=== PATIENT | female | born 1995 | race Caucasian/White ===

== ENCOUNTER 2017-02-25 20:50 | Outpatient (CLI) | payer OTHER ==
[~2017-02-25] VITALS: Ht 160 cm; Wt 107.7 kg
[2017-02-25] MEDS ORDERED: PRENTAB26 PO (22:43)
[2017-02-25] MEDS ORDERED: RANI150T3 PO (22:43)
[2017-02-25 22:44] VITALS: Ht 160 cm; Wt 107.7 kg
--- NOTE | 2017-02-26 00:24 | Progress Note ---
Progress Note Date of Service Feb 26, 2017. Progress Note Pt seen and evaluated for labor check st 38 + weeks monitored for 3 hrs Cervical exam unchanged . ft/50/post FHR CAT 1 Ctx 2-4mins D/c home with instructions
--- NOTE | 2017-02-26 00:26 | Discharge Instructions ---
Discharge Instructions Date of Service Feb 26, 2017. Admission Reason for Admission: Check Labor Discharge Discharge Diagnosis / Problem: LABOR CHECK Discharge Goals Goal(s): Continuing OB care Activity Recommendations Activity Limitations: as noted below SPECIAL CARE INSTRUCTIONS: Call Doctor if: * Regular contractions every 5 minutes or greater than contractions in one hour. * Bleeding * Water breaks or is leaking * Decreased movement * Fever >100.4 degrees F * Pain not relieved by routine measures or pain medication ordered. FOLLOW UP VISIT: Return to Labor and Delivery on for /call for appointment time . Follow-up Visit with: When: . Current Hospital Diet Patient's current hospital diet: Discharge Diet Recommended Diet: Regular Diet Pending Studies Studies pending at discharge: no Medical Emergencies . Who to Call and When: Medical Emergencies: If at any time you feel your situation is an emergency, please call 911 immediately. . Non-Emergent Contact Non-Emergency issues call your: Specialist . . "Provider Documentation" section prepared by Onur Martins. . VTE Core Measure Inpt VTE Proph given/why not?: Treatment not indicated
== END 2017-02-26 00:45 | disposition home or self-care (01) ==
LOC: C.LD 20:50 → C.OPB 20:50
PROVIDERS: ATTEND Obstetrics & Gynecology
DX: Z34.83 Encounter for supervision of other normal pregnancy, third trimester (principal); Z3A.38 38 weeks gestation of pregnancy

== ENCOUNTER 2017-03-11 07:41 | Inpatient (IN) | payer OTHER ==
[~2017-03-11] VITALS: Ht 160 cm; Wt 108.9 kg
[~2017-03-11 07:41] MED LIST: PRENTAB26 PO; RANI150T3 PO
[2017-03-11 08:24] VITALS: Ht 160 cm; Wt 108.9 kg
[2017-03-11] MEDS ORDERED: LACTATED RINGER'S 1000ML 1,000 ML IV PRN (08:55)
[2017-03-11] MEDS ORDERED: MISOPROSTOLTAB 50 MCG TAB PO ONE ×2 (09:15→12:00)
[2017-03-11] MEDS ORDERED: PENICILLIN G POTASSIUM IV 6 MU in DEXTROSE 5% 250ML 250 ML IV ONE (09:30)
[2017-03-11] MEDS ORDERED: LACTATED RINGER'S 1000ML 500 ML IV PRN ×2 (09:32→19:28)
[2017-03-11 09:43] LABS: HEMATOCRIT 34.4 % (37-47); MEAN CELL VOLUME 83.3 fL (80-100); MEAN CORPUSCULAR HEMOGLOBIN 26.2 pg (25-34); MEAN CORPUSCULAR HGB CONC 31.4 g/dl (32-36); MEAN PLATELET VOLUME 8.7 fL (7.4-10.4); PLATELET COUNT 169 K/uL (130-400); RED BLOOD COUNT 4.13 M/uL (4.2-5.4); WHITE BLOOD COUNT 10.11 K/uL (4.8-10.8)
[2017-03-11] MEDS ORDERED: OXYTOCIN 30 UNITS/500ML NSS IV PRN (09:45)
[2017-03-11] MEDS: LACTATED RINGER'S 1000ML 1,000 ML IV SCH ×3 (09:51→21:14)
[2017-03-11 10:03] LABS: BUN/CREATININE RATIO 10.5 (10-20); CALCIUM 8.6 mg/dl (8.5-10.1); CREATININE 0.64 mg/dl (0.60-1.20); POTASSIUM 3.5 mmol/L (3.5-5.1)
[2017-03-11 10:06] LABS: ALB/GLOB RATIO 0.6 (0.9-2)
--- NOTE | 2017-03-11 11:19 | HISTORY & PHYSICAL EXAMINATION ---
DATE OF ADMISSION: 03/11/2017 HISTORY OF PRESENT ILLNESS: The patient is a 21-year-old G3, P1, due date 03/11/2017 making her 40 weeks today, presented to labor and delivery for induction of labor. The patient is being induced because of elevated BMI. On arrival at labor and delivery, she has no shortness of breath, no chills, no fever. heart rate is documented. Pelvic exam shows she is fingertip 50% and minus 4 station. The patient is carlos every 2-4 minutes. Bedside ultrasound shows cephalic presentation. course is unremarkable except for history of elevated BMI. Based on patient's history, the recommendation is made for her to be induced by EDC. LABS: Blood type A negative, antibody negative, rubella immune, GBS positive. PAST MEDICAL HISTORY: 1. History of gastroesophageal reflux disease. 2. 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 3. History of migraines. 4. History of irritable bowel syndrome. 5. Obesity class 3. PAST SURGICAL HISTORY: 1. History of tonsillectomy. 2. History of colonoscopy. 3. History of laparoscopy. 4. History of cholecystectomy. SOCIAL HISTORY: The patient is . Denies drug, tobacco or alcohol use. HUMAN RESOURCES TALENT MANAGER HISTORY: The patient delivered an at 23 weeks that did not survive. She had since had one live in 2014. PHYSICAL EXAMINATION: GENERAL: Well-developed, well-nourished white female in no acute distress. HEART: S1, S2, regular rhythm and rate. LUNGS: Clear to auscultation bilaterally. ABDOMEN: Gravid. Bedside ultrasound cephalic presentation. EXTREMITIES: No cyanosis, clubbing or edema. PELVIC: 1cm/50% effaced, and minus 4 station. ASSESSMENT AND PLAN: A 21-year-old G3, P1 at 40 weeks, here for induction because of class 3 obesity. The patient is admitted, will be started. We anticipate vaginal delivery. [facility]
[2017-03-11] MEDS: PENICILLIN G POTASSIUM IV 3 MU in DEXTROSE 5% 100ML 100 ML IV PRN ×3 (13:42→21:32)
[2017-03-11] MEDS ORDERED: ACETAMINOPHEN 500 MG TAB PO STA (17:35)
[2017-03-11] MEDS ORDERED: FENTANYL 2MCG/ML ROPIV 1.25MG/ML 100ML BAG EPI ONE (18:26)
[2017-03-11] MEDS ORDERED: EpHEDrine SULFATE INJ 50 MG/ML AMP ONE (18:26)
[2017-03-11] MEDS ORDERED: BUPIVACAINE 0.25% 30 ML VIAL ONE (18:26)
[2017-03-11] MEDS ORDERED: FENTANYL CITRATE INJ 50 MCG/1 ML 2 ML VIAL ONE (18:27)
[2017-03-11] MEDS ORDERED: NALOXONE HCL INJ 1 MG in SODIUM CHLORIDE 0.9% 1000ML 1,000 ML IV PRN ×4 (19:28)
[2017-03-11] MEDS ORDERED: ONDANSETRON INJ 2 MG/ML 2 ML VIAL IV PRN (19:30)
[2017-03-11] MEDS ORDERED: NALOXONE HCL INJ 0.4 MG/1 ML VIAL/CARP IV PRN (19:30)
[2017-03-11] MEDS ORDERED: DiphenhydrAMINE HCL 50 MG/ML VIAL IV PRN (19:30)
[2017-03-11] MEDS ORDERED: EpHEDrine SULFATE INJ 50 MG/ML AMP IV PRN (19:30)
[2017-03-11] MEDS ORDERED: PROMETHAZINE HCL INJ 25 MG in SODIUM CHLORIDE 0.9% 50ML 50 ML IV PRN (19:30)
[2017-03-11] MEDS ORDERED: NALBUPHINE HCL INJ 10 MG/ML AMP IV PRN (19:30)
[2017-03-12] MEDS: FENTANYL 2MCG/ML ROPIV 1.25MG/ML 100ML BAG EPI PRN ×2 (01:02→01:50)
[2017-03-12] MEDS: PENICILLIN G POTASSIUM IV 3 MU in DEXTROSE 5% 100ML 100 ML IV PRN (01:33)
[2017-03-12] MEDS ORDERED: FENTANYL CITRATE INJ 50 MCG/1 ML 2 ML VIAL ONE (02:01)
[2017-03-12] MEDS ORDERED: BUPIVACAINE 0.25% 30 ML VIAL ONE (02:01)
[2017-03-12] MEDS ORDERED: MISOPROSTOL 200 MCG TAB ONE (02:30)
[2017-03-12] MEDS ORDERED: OXYCODONE/ACETAMINOPHEN 5-325 TAB PO PRN (03:00)
[2017-03-12] MEDS ORDERED: HYDROCORTISONE ACETATE 25 MG SUPP PR PRN (03:00)
[2017-03-12] MEDS ORDERED: OXYTOCIN 30 UNITS/500ML NSS IV PRN (03:00)
[2017-03-12] MEDS ORDERED: SUPERCREAM 0.870 % 15GM JAR EXT PRN (03:00)
[2017-03-12] MEDS ORDERED: MISOPROSTOL 200 MCG TAB PR SCH (03:00)
[2017-03-12] MEDS ORDERED: ACETAMINOPHEN 325 MG TAB PO PRN (03:00)
[2017-03-12] MEDS ORDERED: LANOLIN OINT EXT PRN ×2 (03:00)
[2017-03-12] MEDS ORDERED: ACETAMINOPHEN/CODEINE 300/30MG TAB PO PRN ×2 (03:00)
[2017-03-12] MEDS ORDERED: BENZOCAINE 20% AER SPR 82.5 GM CAN EXT PRN (03:00)
[2017-03-12] MEDS: IBUPROFEN 600 MG TAB PO PRN ×5 (03:29→20:07)
[2017-03-12 05:15] VITALS: BP 116/71; PULSE 91; TEMP 37.1
--- NOTE | 2017-03-12 06:57 | DELIVERY SUMMARY ---
DATE OF OPERATION: 03/11/2017 The patient delivered a live infant female in left occiput anterior presentation. There was a loose nuchal cord which was easily reduced. was delivered and placed on mother's abdomen. Cord was clamped, cut and handed over to the waiting nurses. 's weight is pending. Apgars 8 and 9. Cord gas and cord blood was obtained. Placenta was spontaneously delivered. Inspection of the placenta showed grossly normal placenta. Inspection of the perineum shows no lacerations. There was good hemostasis. Estimated blood loss is 500 mL. Infant's weight is 9 pounds 7 ounces. All instruments were removed from the vagina including sponges and laps and accounted for x2. Baby and mother are stable in the recovery. I attest to the content of the Intraoperative Record and any orders documented therein. Any exception s are noted below.
--- NOTE | 2017-03-12 07:40 | Anesthesia Procedure Note ---
Anesthesia Epidural Removal Nt Date & Time Mar 12, 2017 at 07:40 Vital Signs Pain Intensity: 1.0 Vital Signs Past 12 Hours Date Time Temp Pulse Resp B/P (MAP) Pulse Ox O2 Delivery O2 Flow Rate FiO2 03/12/17 05:58 Room Air 03/12/17 05:15 37.1 91 18 116/71 (86) Room Air Notes Mental Status: alert / awake / arousable, participated in evaluation Nausea / Vomiting: adequately controlled Pain: adequately controlled Airway Patency, RR, SpO2: stable & adequate BP & HR: stable & adequate Hydration State: stable & adequate Neuraxial Anesthesia: was administered, sensory block is resolved Anesthetic Complications: no major complications apparent, pt satisfied with anesthetic care Epidural: removed without complications, with tip intact
[2017-03-12] MEDS: DOCUSATE SODIUM 100 MG CAP PO SCH ×2 (08:00→20:00)
[2017-03-12] MEDS: FERROUS SULFATE 325 MG TAB PO SCH (08:04)
[2017-03-12] MEDS: PRENATAL VITAMIN TAB PO SCH (08:04)
[2017-03-12 08:20] VITALS: BP 112/61; PULSE 70; TEMP 36.9; O2SAT 96
[2017-03-12 12:10] VITALS: BP 111/74; PULSE 85; TEMP 36.9; O2SAT 98
[2017-03-12 15:30] VITALS: BP 124/72; PULSE 51; TEMP 36.7
[2017-03-12 19:00] VITALS: BP 119/79; PULSE 76; TEMP 36.6
[2017-03-12] MEDS ORDERED: BISACODYL 5 MG TABEC PO SCH (20:00)
[2017-03-13 00:30] VITALS: BP 116/75; PULSE 80; TEMP 36.8
[2017-03-13] MEDS: IBUPROFEN 600 MG TAB PO PRN ×4 (01:19→16:50)
[2017-03-13] MEDS ORDERED: BISACODYL 10 MG SUPP PR PRN (07:00)
[2017-03-13] MEDS ORDERED: MTR600X PO (07:20)
--- NOTE | 2017-03-13 07:21 | Discharge Instructions ---
Discharge Instructions Date of Service Mar 13, 2017. Admission Reason for Admission: Induction Discharge Discharge Diagnosis / Problem: Vaginal Delivery Discharge Goals Goal(s): Routine recovery after delivery Medications Continue Dispensed Medications: supercream, dermaplast, tucks, lansinoh Activity Recommendations Activity Limitations: per Instructions/Follow-up section . Instructions / Follow-Up Instructions / Follow-Up ACTIVITY RECOMMENDATIONS: * Gradual return to full activity over the next 2-3 weeks. * No lifting - nothing heavier than baby over the next 2-3 weeks. * Do not engage in vigorous exercise, sexual activity or sports until cleared by your physician. * Do not drive or operate any motorized equipment until cleared by your physician. * You may shower/bathe daily. BREAST CARE: If you are not breast feeding: * Wear a supportive bra 24 hours a day for one to two weeks. * Avoid stimulating your breasts and nipples as much as possible during the first few weeks after delivery. * When taking a shower, have the warm water hit your back, not breasts. * When your breasts feel full, apply ice packs. Usually three to four times a day helps ease the discomfort. * Take a mild pain medication (Tylenol/Motrin) when you are uncomfortable. If breast feeding: * Use breast milk to lubricate nipples. Lansinoh cream may be used for sore nipples. You do not need to remove cream prior to breast feeding. If using a different brand of cream, check the label for directions regarding removal of cream prior to nursing. * Wear a supportive bra. * If having problems with breasts or breast feeding, call a building consultant or your health care provider. EPISIOTOMY CARE: After delivery, if you have an episiotomy (stitches), the following steps will ease discomfort and aid healing. * For the first 24 hours after delivery, place ice packs next to your episiotomy to help reduce swelling. * After the first 24 hour-period, sitz baths, either portable or in the tub, are suggested. A shower with a shower arm sprayed over the episiotomy may be comforting. * Lyndsey care should be done after each voiding and bowel movement. Squirt warm water from a plastic bottle over the perineum (region of the body between the anus and urinary opening) and pat dry. * Use Dermoplast to ease discomfort. Shake container. [place] directly over the episiotomy. * Place a Tucks on a clean sanitary pad next to your episiotomy. OVER THE COUNTER MEDICATION: * For discomfort or pain, you may use Acetaminophen (Tylenol), Ibuprofen (Advil ), or Naproxen (Aleve) following the package directions. * For constipation you may use Colace following the package directions. SPECIAL CARE INSTRUCTIONS: When you are discharged from the hospital, it is important for you to follow the instructions listed below: * During the first week at home, you should be able to care for yourself and your baby. In addition, the usual light household activities are encouraged. * Limit your activities to the way you feel. Do not try to clean the house or move furniture. Be sensible. * If you actively engage in sports and have done so up until the time of your delivery, you may resume these activities as soon as you feel able. This may take up to one month or even longer. Use good judgment. * Continue to take your vitamins for at least six weeks after the of your baby. * Your diet need not be limited unless you were on a special diet before your delivery. Breast-feeding mothers need around 2500 calories per day and at least 64-80 ounces of fluid per day (8 to 10 glasses). * You should eat foods from the four major food groups. Crash diets or fad diets are to be avoided. Eating lean meats, fresh fruits and vegetables, low-fat dairy products, high fiber foods and a regular exercise program, will help you get back to your pre- weight without putting your health at risk. * Constipation is sometimes a problem after delivery. Take a mild laxative as needed. If breast feeding, Milk of Magnesia is acceptable to use. You may use a suppository or Fleets enema if no episiotomy. * A daily shower or tub bath is suggested. Be sure to thoroughly and gently dry the perineum. * A bloody vaginal discharge will usually continue until around four weeks post . A small amount of bleeding may continue for as long as six weeks. Vaginal discharge changes from the bright red bleeding after delivery to pink then brownish and finally yellowish-pink before becoming white and disappearing. * Bleeding may increase with activity. Your first period may come in 4-8 weeks. If you are breast feeding, your period may be delayed even longer. * [place] (sex) can begin whenever both you and your partner feel comfortable and do not have any form of genital infection. It is recommended that you wait until after your return appointment and discuss with your physician. If you have questions, please talk to your health care practitioner. A condom should be used to prevent infection and . * Foreplay, gentle intercourse and lubrication is very important the first several times to prevent pain. A water-based lubricant such as K-Y jelly or Astroglide may be used. * Tampons may be used six weeks after delivery. * Douching should be avoided for 6 weeks after delivery. * If you have RH negative blood and your baby is RH positive, you will receive RHOGAM by injection prior to discharge. The nurse will give you a card to keep with you that has the date and place that you received RHOGAM after delivery. * During your care, you had a Rubella screen done to check for the presence of rubella antibodies in your blood. If your test was negative, you will receive a Rubella vaccine prior to discharge. This vaccine may cause a fever, soreness at the injection site and flu-like symptoms. If these symptoms persist, notify your health care practitioner. is not advised for three months after a Rubella vaccine. There is a higher chance of having a baby with defects if conceived within three months of getting the vaccine. * If you were discharged 24 hours from delivery or before 48 hours: Visiting nurses will come to your home 48 hours after discharge to assess you and your baby. The visiting nurse will meet with you while you are in the hospital to arrange a time and get directions to your home. * Verbalizes understanding of car seat law as reviewed with patient nursing. * Car Seat hand-out given and reviewed with patient by nursing. * Shaken baby information reviewed with patient by nursing. Call you doctor if: * Heavy bleeding (saturating several pads an hour) or passing clots the size of your fist. * A fever >101 degrees F (38.3 degrees C) on two occasions four hours apart and/or chills. * Unusual pain in the pelvic or vaginal areas. * "Baby Blues" lasting longer than two weeks. If you have any questions or concerns, call your health care practitioner at . FOLLOW-UP VISIT: * Please call the office at to schedule a 6 week examination. It is important you keep this appointment. * It is important for you to make arrangements for either yearly or twice yearly check-ups thereafter. Current Hospital Diet Patient's current hospital diet: Regular OB Diet Discharge Diet Recommended Diet: Regular OB Diet Pending Studies Studies pending at discharge: no Medical Emergencies . Who to Call and When: Medical Emergencies: If at any time you feel your situation is an emergency, please call 911 immediately. . Non-Emergent Contact Non-Emergency issues call your: Primary Care Provider, Exploration Driller . . "Provider Documentation" section prepared by Drake Hill. . VTE Core Measure Inpt VTE Proph given/why not?: Treatment not indicated
--- NOTE | 2017-03-13 07:22 | OB/GYN Progress Note ---
PUBLICATIONS WRITER Progress Note Date of Service Mar 13, 2017. Subjective conversation w/ patient, physical exam Ambulation: ambulating normally Voiding: no voiding problems Passing Gas: Yes Diet Tolerance: Regular Diet Lochia: Small Feeding Type: Breast Feeding Pain: 07/16 Notes: Doing well, no concerns. Pain well controlled. Tolerating regular diet. Ambulating without difficulty. Lochia minimal. Would like to go home today. Objective Vital Signs Date Time Temp Pulse Resp B/P (MAP) Pulse Ox O2 Delivery O2 Flow Rate FiO2 03/13/17 00:30 Room Air 03/13/17 00:30 36.8 80 18 116/75 (89) Room Air 03/12/17 19:00 36.6 76 20 119/79 (92) Room Air 03/12/17 15:30 Room Air 03/12/17 15:30 36.7 51 20 124/72 (89) Room Air 03/12/17 12:10 36.9 85 111/74 (86) 98 Room Air 03/12/17 08:20 36.9 70 112/61 (78) 96 Room Air 03/12/17 08:20 Room Air Physical Exam General Appearance: WELL-APPEARING Respiratory/Chest: chest non-tender, lungs clear Cardiovascular: regular rate, rhythm Abdomen: normal bowel sounds, soft Fundus: Firm Extremities: normal range of motion, non-tender, no calf tenderness Assessment and Plan Post- Day Number: 1 Continue Routine Care: -D/C home today -F/u in 6 weeks.
[2017-03-13 07:45] VITALS: BP 125/81; PULSE 70; TEMP 36.8; O2SAT 99
[2017-03-13] MEDS: FERROUS SULFATE 325 MG TAB PO SCH (07:59)
[2017-03-13] MEDS: DOCUSATE SODIUM 100 MG CAP PO SCH ×2 (07:59→08:00)
[2017-03-13] MEDS: PRENATAL VITAMIN TAB PO SCH (07:59)
[2017-03-13 15:45] VITALS: BP 121/76; PULSE 77; TEMP 36.7; O2SAT 99
[2017-03-13 18:05] VITALS: BP_DIAS 76; PULSE 77; TEMP 36.7
== END 2017-03-13 18:30 | disposition home or self-care (01) | DRG 775 ==
LOC: C.LD 07:41 → C.OBG 03-12 05:08
PROVIDERS: ADMIT Obstetrics & Gynecology; ATTEND Obstetrics & Gynecology
PROC: 10E0XZZ Delivery of Products of Conception, External Approach (ICD-10-PCS; principal; 2017-03-12)
PROC: 3E033VJ Introduction of Other Hormone into Peripheral Vein, Percutaneous Approach (ICD-10-PCS; principal; 2017-03-12)
DX: O99.213 Obesity complicating pregnancy, third trimester (principal); O69.81X1 Labor and delivery complicated by cord around neck, without compression, fetus 1; Z37.0 Single live birth; Z22.330 Carrier of Group B streptococcus; E66.8 Other obesity; Z3A.40 40 weeks gestation of pregnancy